=== PATIENT | male | born 1945 | race Caucasian/White ===

== ENCOUNTER 2021-12-29 19:22 | Emergency (ER) | payer MEDICARE ==
[~2021-12-29 19:22] MED LIST: COLACE100 MG PO
[2021-12-29 20:12] LABS: BASOPHIL 0.7 % (0-2); EOSINOPHIL 0 % (0-7); HCT 46.4 % (42.0-52.0); HGB 15.5 g/dl (13.2-18.0); MCHC 33.4 g/dL (32.0-36.0); MCV 83.9 fL (78.0-100.0); MONOCYTE 10.4 % (0-12); MPV 10.2 fL (6.0-9.5); NEUTROPHIL 60.8 % (41-80); NRBC 0; PLT 183 K/uL (150-400); RBC 5.53 M/uL (4.70-6.00); RDW 11.9 % (11.5-14.0); WBC 6.7 K/uL (4.0-10.5)
[2021-12-29 20:17] LABS: INR 1.27 (0.9-1.2); PROTHROMBIN TIME 15.5 SECONDS (11.9-13.9); PTT 40.6 SECONDS (24.9-34.6)
[2021-12-29 20:23] LABS: BILIRUBIN 1+ mg/dL (NEGATIVE); BLOOD 2+ Ery/uL (NEGATIVE); CLARITY CLEAR (CLEAR); COLOR YELLOW (YELLOW); GLUCOSE (U) NORMAL (NORMAL); LEUKOCYTES NEGATIVE Leu/uL (NEGATIVE); NITRITE NEGATIVE (NEGATIVE); PROTEIN 1+ mg/dL (NEGATIVE); SPECIFIC GRAVITY >=1.030 (1.001-1.030); pH 5.5 (5.0-9.0)
[2021-12-29 20:31] LABS: AMPHETAMINES NEGATIVE (NEGATIVE); BARBITURATES NEGATIVE (NEGATIVE); ECSTASY (MDMA) NEGATIVE (NEGATIVE); MARIJUANA (THC) NEGATIVE (NEGATIVE); METHADONE NEGATIVE (NEGATIVE); OPIATES NEGATIVE (NEGATIVE); OXYCODONE NEGATIVE (NEGATIVE)
[2021-12-29 20:32] LABS: ALBUMIN 3.5 g/dL (3.4-5.0); ALKALINE PHOSHATASE 82 U/L (46-116); ALT 21 U/L (16-63); AST 18 U/L (15-37); BILIRUBIN - TOTAL 0.8 mg/dL (0.2-1.0); BUN 18 mg/dL (7-18); BUN/CREAT RATIO (CALC) 13.2 RATIO; CHLORIDE 94 mmol/L (98-107); CO2 (BICARBONATE) 22 mmol/L (21-32); CREATININE 1.36 mg/dL (0.67-1.17); GLOBULIN (CALCULATION) 4.6 g/dL; GLUCOSE 152 mg/dL (74-106); POTASSIUM 3.6 mmol/L (3.5-5.1); TOTAL PROTEIN 8.1 g/dL (6.4-8.2)
[2021-12-29 20:41] LABS: MUCOUS MODERATE
[2021-12-29 22:26] LABS: CORONAVIRUS 2019 SARS-COV-2 NEGATIVE (NEGATIVE); INFLUENZA A NAA NEGATIVE (NEGATIVE)
[2021-12-29 23:11] LABS: BUN/CREAT RATIO (CALC) 13.2 RATIO; CREATININE 1.36 mg/dL (0.67-1.17); POTASSIUM 3.8 mmol/L (3.5-5.1)
== END 2021-12-29 23:56 | disposition home or self-care (01) ==
LOC: FER 19:22
PROVIDERS: Internal Medicine
DX: E86.0 Dehydration (principal); N17.9 Acute kidney failure, unspecified; N40.1 Benign prostatic hyperplasia with lower urinary tract symptoms; R35.0 Frequency of micturition; E87.1 Hypo-osmolality and hyponatremia; I10 Essential (primary) hypertension; F17.210 Nicotine dependence, cigarettes, uncomplicated; Z20.822 Contact with and (suspected) exposure to COVID-19
CPT/HCPCS: 36415; 70450; 71250; 80048; 80053; 80305; 81001; 83605; 83880; 84145; 84484; 85025; 85610; 85730; 87040; 93005; G0480; J2543; J7030; U0002